=== PATIENT | male | born 1970 | race Caucasian/White ===

== ENCOUNTER → 2018-03-05 | Outpatient (CLI) | payer MEDICARE ==
[2018-03-08 14:02] LABS: U Amphetamine Screen Not Detected; U Barbituate Screen Not Detected; U Benzodiazapine Screen Not Detected; U Buprenorphine Screen Not Detected; U Cannabinoids Screen DETECTED; U Cocaine Screen Not Detected; U Methadone Screen Not Detected; U Methamphetamine Screen Not Detected; U Opiates Screen Not Detected; U Oxycodone Screen DETECTED; U Phencyclidine Screen Not Detected; U Propoxyphene Screen Not Detected
== END ==
LOC: LAB 15:00 → LAB SHORT 15:00
PROVIDERS: Nurse Practitioner Family
DX: G89.4 Chronic pain syndrome (principal); R77.1 Abnormality of globulin; Z79.891 Long term (current) use of opiate analgesic

== ENCOUNTER 2018-07-02 14:50 | Emergency (ER) | payer MEDICARE ==
[~2018-07-02] VITALS: Ht 185.4 cm; Wt 77.1 kg
[2018-07-02] MEDS ORDERED: LEVSOD100 PO (14:54)
== END 2018-07-02 16:58 | disposition home or self-care (01) ==
LOC: ER 14:50
DX: S06.0X9A Concussion with loss of consciousness of unspecified duration, initial encounter (principal); W11.XXXA Fall on and from ladder, initial encounter; Z79.899 Other long term (current) drug therapy
CPT/HCPCS: 70450; 99284-25

== ENCOUNTER → 2021-08-21 | Outpatient (CLI) | payer MEDICARE ==
[~2021-08-21] MED LIST: LEVSOD100 PO
== END | disposition home or self-care (01) ==
LOC: LAB SHORT 15:09
PROVIDERS: Nurse Practitioner Family
DX: G89.4 Chronic pain syndrome (principal); Z79.899 Other long term (current) drug therapy
CPT/HCPCS: G0480